=== PATIENT | male | born 1960 | race Caucasian/White ===

== ENCOUNTER 2017-08-03 16:17 | Observation (INO) | payer MEDICARE ==
[~2017-08-03] VITALS: Ht 177.8 cm; Wt 100.7 kg
[2017-08-03 16:21] VITALS: BP 168/102
[2017-08-03] MEDS ORDERED: LISI1TAB5 PO (16:22)
--- NOTE | 2017-08-03 16:25 | NUR ---
ARRIVAL PATIENT ARRIVED TO ED3 VIA W/C WITH FAMILY,C/O OF CHEST PAIN FOR THE PAST 3 DAYS, DID TAKE 6 81MG ASPIRIN ABRASIVE BAND WINDER, PAIN COMES AND GOES WITH TODAYS BEING WORSE. FAMILY BROUGHT TO ED FOR FURTHER EVAL.
--- NOTE | 2017-08-03 16:27 | PCM.EKG ---
[facility] Test Date: 2017-08-03 Test Time: 16:19:50 Pat Name: RICA SAUCEDA Department: Room: 309 Gender: M Polysom Tech: YENI : 1960 Requested By: OCTAVIA CHEUNG Order Number: [id number] Reading MD: Octavia CHEUNG Measurements Intervals [place] Rate: 86 P: 51 ND: 144 QRS: 41 QRSD: 80 T: 87 QT: 364 QTc: 435 Interpretive Statements Normal sinus rhythm Normal ECG No previous ECG available for comparison Electronically Signed On 08-11-2017 23:55:31 WAX PATTERN REPAIRER by Octavia CHEUNG Please click the below link to view image of tracing.
[2017-08-03 16:43] LABS: BASOPHIL % 0.5 % (0.0-0.2); EOSINOPHIL # 0.1 10^3/uL (0.0-0.2); HEMOGLOBIN 14.4 g/dL (13.9-16.3); LYMPHOCYTES # 2.2 10^3/uL (1.0-4.8); MEAN CELL HGB 29.3 pg (26-34); MEAN CELL HGB CONCENTRATION 32.8 g/dL (33-37); MEAN CORP VOLUME 89.2 fL (78-100); MEAN PLATELET VOLUME 10.7 fL (7.8-11.0); MONOCYTES # 0.7 10^3/uL (0.3-0.8); MONOCYTES % 8.9 % (5.0-12.0); NEUTROPHIL # 5.3 10^3/uL (1.8-7.7); NEUTROPHILS % 63.2 % (41.0-85.0); RED CELL DISTRIBUTION WIDTH 13.6 % (11.5-14.5); WHITE BLOOD CELL 8.3 10^3/uL (4.5-11.0)
--- NOTE | 2017-08-03 16:44 | ER.PDOC ---
General Chief Complaint: Chest Pain-Cardiac Nature Stated Complaint: CHEST PAIN Time seen by MD: 16:42 Source: patient Exam Limitations: no limitations History of Present Illness Initial Comments Chest pain for 3 days. Pain is mid chest and does not radiate. Timing/Duration: intermittent Severity/Quality: moderate, dull Radiation: no radiation Activities at Onset: none Prior CP/Workup: No Prior Chest Pain Aspirin Today: 325 mg x 1 Associated Symptoms: denies symptoms Allergies: Coded Allergies: No Known Allergies (Unverified , 08/03/17) Home Meds Reported Medications Lisinopril/Hydrochlorothiazide (LISINOPRIL-HCTZ 20-12.5 MG TAB) 1 Each Tablet, 1 TAB PO DAILY, #90 TAB 3 Refills 08/03/17 Past Medical History Medical History: hypertension Surgical History: back Social History Smoking: cigarettes, less than 1 pack/day Alcohol Use: occassionally Drug Use: none Constitutional: no symptoms reported Respiratory: no symptoms reported Cardiovascular: see HPI Gastrointestinal: no symptoms reported Genitourinary: no symptoms reported Musculoskeletal: no symptoms reported Skin: no symptoms reported All Other Systems: Reviewed and Negative Physical Exam General Appearance: No Apparent Distress, WD/WN HEENT: PERRL/EOMI Neck: Non-Tender, Full Range of Motion, Supple, Normal Inspection Respiratory: chest non-tender, lungs clear, normal breath sounds, no respiratory distress, no accessory muscle use Cardiovascular: Normal Peripheral Pulses, Regular Rate, Rhythm, No Edema, No Gallop, No JVD, No Murmur Gastrointestinal: Normal Bowel Sounds, No Organomegaly, No Pulsatile Mass, Non Tender, Soft Extremities: Normal Range of Motion, Non-Tender, Normal Inspection, No Pedal Edema, No Calf Tenderness, Normal Capillary Refill Neurologic/Psychiatric: indoor landscape architect II-XII NML as Tested, No Motor/Sensory Deficits, Alert, Normal Mood/Affect, Oriented x 3 Skin: Normal Color EKG/XRAY/CT/US EKG Comments: Normal XRAY: chest Course Blood Pressure Systolic: 168 Blood Pressure Diastolic: 102 Blood Pressure Mean: 124 Departure Time of Disposition: 18:54 Disposition: 09 ADMITTED INPATIENT Impression: Primary Impression: Chest pain Condition: Stable Comments Admitted to Dr. Siu Duration or Time Spent with Pa: 70 mins Problem Qualifiers Primary Impression: Chest pain Chest pain type: unspecified Qualified Codes: R07.9 - Chest pain, unspecified SKYE,DUDLEY E MD Aug 03, 2017 16:44
[2017-08-03 17:08] LABS: ALANINE AMINOTRANSFERASE(ML) 41 U/L (12-78); ALKALINE PHOSPHATASE 65 U/L (50-136); ASPARTATE AMINO TRANSFERASE 17 U/L (0-35); CALCIUM 8.9 mg/dL (8.4-10.5); CARBON DIOXIDE 22.8 mmol/L (20.0-32); GLUCOSE 87 mg/dL (70-110)
--- NOTE | 2017-08-03 17:59 | NUR ---
VALERIY DOCTOR SKYE ON THE PHONE WITH DOCTOR CROOKS, WILL ADMIT FOR OBSERVATION.
[2017-08-03 18:10] VITALS: BP 155/92
--- NOTE | 2017-08-03 18:56 | DIREP ---
PROCEDURE:CHEST 1 VIEW COMPARISON:None. INDICATIONS:CHEST PAIN FINDINGS:Portal chest obtained over series of 2 films LUNGS/PLEURA:No significant pulmonary parenchymal abnormalities. No effusions. VASCULATURE:Normal. Unremarkable pulmonary vasculature. CARDIAC:Normal. No cardiac silhouette abnormality or cardiomegaly. MEDIASTINUM:Normal. No visible mass or adenopathy. BONES:Moderate degenerative changes of both shoulders. OTHER:EKG leads are noted. CONCLUSION:No active pulmonary disease. Dictated by: Alex Wong MD on 08/03/2017 at 06:55 PM
--- NOTE | 2017-08-03 18:56 | PRM.ACF1 ---
Date and Time Date and Time Time: 18:55 Admission Criteria Forms CHEST PAIN: OBSERVATION CARE USE THIS FORM ONLY WHEN INPATIENT ADMISSION CRITERIA ARE NOT MET. (Place X for any and all applicable criteria): Placement for observation care may be appropriate for a patient with chest pain and ANY ONE of the following (1)(2)(3)(4)(5): [x]I. Suspected cardiac ischemia with nondiagnostic initial evaluation (eg, ECG, cardiac biomarkers) requiring further immediate evaluation such as stress testing and repeat laboratory testing to clarify diagnosis []II. Other suspected diagnosis requiring observation and monitoring during diagnostic evaluation (eg, pulmonary embolus, aortic dissection, pneumothorax, pericarditis, GI bleeding) (6)(7)(8)(9) []III. Other observation care needs (Use General Criteria: Observation Care) The original [facility] Note content created by [facility] has been revised. The portions of the content which have been revised are identified through the use of italic text, and [facility] has neither reviewed nor approved the modified material. All other unmodified content is copyright [facility]. Please see references footnoted in the original [facility] Note edition 2016 OCTAVIA CHEUNG MD Aug 03, 2017 18:56
[2017-08-03] MEDS ORDERED: LOVENOX SQ STA (18:57)
[2017-08-03] MEDS ORDERED: NITRO-BID TD STA (18:57)
[2017-08-03 19:10] VITALS: BP 126/78
[2017-08-03] MEDS ORDERED: LOVENOX SQ ONE (19:15)
[2017-08-03] MEDS ORDERED: NITRO-BID TD ONE (19:15)
[2017-08-03 19:44] VITALS: BP 124/84
--- NOTE | 2017-08-03 19:45 | NUR ---
arrival pt arrived on a wheel chair accompanied by family member and staff. No s/sx of any distress. Pt. verbalized no pain. Vital signs taken and recorded. Assessment done. Comfort measures provided. Call light within reach and will monitor regularly.
[2017-08-03] MEDS: LOVENOX SQ SCH (19:57)
--- NOTE | 2017-08-03 21:45 | NUR ---
food pt's significant others brought some food from [facility] for the pt. 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
[2017-08-04] VITALS: BP 122/67
[2017-08-04 04:00] VITALS: BP 111/75
--- NOTE | 2017-08-04 06:49 | NUR ---
report report given to o/c shift
--- NOTE | 2017-08-04 07:14 | NUR ---
REPORT REPORT RECEIVED FROM DESK REPRESENTATIVE
[2017-08-04] MEDS ORDERED: ASPIRIN EC ONE (07:21)
[2017-08-04 08:54] VITALS: BP 142/91
[2017-08-04] MEDS: ASPIRIN EC PO SCH (08:54)
--- NOTE | 2017-08-04 09:45 | PCM.HP ---
History of Present Illness Reason for Visit: Accelerating angina History of Present Illness 57-year-old gentleman, 30 years plus of smoking, history of hypertension and hyperlipidemia. He reports cardiac cath more than 7 years ago with mild nonobstructive disease in [place]. Admittedly emergency room with 3 weeks of accelerating angina described as burning sensation in the left anterior chest wall with radiation, social shortness of breath and diaphoresis. Symptoms has been exertional, over the last 5 days symptoms of been happening on minimal activity or even at rest. On presentation to the emergency room , initial EKG was unremarkable. First set of cardiac enzymes were negative. The patient chest pain responded to nitroglycerin, he was admitted for further evaluation and Treatment. Overnight the patient continues to have angina symptoms with diaphoresis and shortness of breath, EKG still unremarkable. Due to high risk carotid profile. And active symptoms with established disease more than 7 years ago, recommend coronary angiography. Past Medical History Cardiac: CAD ( Established.), CHF, HTN Past Social History Smoke: <1 pack per day (4:30 plus years) Occupation: he is disabled Alcohol: rare Travel Hx EBOLA RISK:Travel to/contact w: No Is pt experiencing any Ebola s: No Review of Systems Constitutional: Sweats, Weakness, No: Fever, Chills, Malaise, Other Eyes: No: Pain, Vision change, Conjunctivae inflammation, Eyelid inflammation, Other, Redness Respiratory: Shortness of breath, SOB with excertion Cardiovascular: Chest Pain ( diaphoresis) Gastrointestinal: Nausea ( occasional), No: Vomiting, Abdominal Pain, Diarrhea , Constipation, Melena, Hematochezia, Other Genitourinary: No Dysuria, No Frequency, No Incontinence, No Hematuria, No Retention, No Other Musculoskeletal: No: other, neck pain, shoulder pain, arm pain, back pain, hand pain, leg pain, foot pain Allergies: Coded Allergies: No Known Allergies (Unverified , 08/03/17) Scheduled Lisinopril/Hydrochlorothiazide (Lisinopril-Hctz 20-12.5 Mg Tab), 1 TAB PO DAILY, (Reported) VTE VTE Risk Total Score: 1 VTE Risk Score VTE Risk: Score 0-1 = Low Risk (Aggressive mobilization; early ambulation; no VTE prophylaxis required) Score 2: Moderate Risk (Intermittent/Pneumatic Compression Device OR Lovenox/Heparin/Coumadin) Score 3-4: High Risk (Intermittent/Pneumatic Compression Device AND Lovenox/Heparin/Coumadin) Score > or =5: Highest Risk (Intermittent/Pneumatic Compression Device AND Lovenox/Heparin/Coumadin) Antico:Hep/LMWH/Coum/Xarelto: Yes ( Lovenox therapy) VTE VTE Present on Admission: No Currently receiving anticoagul: No VTE Risk Total Score: 1 Exam Vital Signs Vital Signs Date Time Temp Pulse Resp B/P (MAP) Pulse Ox O2 Delivery O2 Flow Rate FiO2 08/04/17 08:54 97.5 79 18 142/91 (108) 96 Room Air General Appearance: Alert, Oriented X3, Cooperative, mild distress ( with shortness of breath) HEENT: Atraumatic Respiratory: Clear to auscultation Cardiovascular: Regular rate, Normal S1, Normal S2, No murmurs (soft S4 was noted) Abdominal: Normal bowel sounds Extremities: No clubbing Skin: No rash Assessment/Plan Assessment/Plan Assessment/Plan - 57-year-old smoker with unstable angina symptoms, presented with accelerating angina. Arrange for coronary angiography, start ACS protocol, check lipids echocardiogram and other metabolic derangements. - Last on modification and secondary prevention measures will also be delivered Problems: Patient History: Patient reports no known family medical history. KAJAL CROOKS MD Aug 04, 2017 09:45
[2017-08-04] MEDS ORDERED: HEPARIN ONE (11:28)
[2017-08-04] MEDS ORDERED: VERSED ONE (11:28)
[2017-08-04] MEDS ORDERED: CALAN ONE (11:28)
[2017-08-04] MEDS ORDERED: NITROGLYCERIN 25MG/D5W 250ML 250 ML IV ONE (11:29)
[2017-08-04] MEDS ORDERED: SUBLIMAZE ONE (11:29)
[2017-08-04] MEDS ORDERED: XYLOCAINE ONE (11:29)
[2017-08-04] MEDS ORDERED: NS 1000ML 1,000 ML ONE (11:54)
[2017-08-04 13:15] VITALS: BP 126/60
--- NOTE | 2017-08-04 13:17 | PCM.EKG ---
[facility] Test Date: 2017-08-04 Test Time: 10:22:54 Pat Name: RICA SAUCEDA Department: Patient ID: [id number] Room: 309 Gender: M Mechanical Planner: JOLANTA : 1960 Requested By: KAVON SIU Order Number: [id number] Reading MD: Kavon Siu Measurements Intervals [place] Rate: 83 P: 67 WV: 148 QRS: 70 QRSD: 84 T: 71 QT: 372 QTc: 437 Interpretive Statements Normal sinus rhythm Normal ECG No previous ECG available for comparison Electronically Signed On 08-08-2017 15:33:59 SENIOR MOBILE DEVELOPER by Kavon Siu Please click the below link to view image of tracing.
[2017-08-04] MEDS: LOVENOX SQ SCH (13:44)
--- NOTE | 2017-08-04 13:54 | NUR ---
PT TO SENIOR FIRE PROTECTION ENGINEER
[2017-08-04] MEDS: NS 1000ML 1,000 ML IV SCH (14:15)
[2017-08-04] MEDS ORDERED: AMBIEN PO PRN (14:30)
[2017-08-04] MEDS ORDERED: NORCO 5MG PO PRN (14:30)
--- NOTE | 2017-08-04 14:32 | NUR ---
PT RETURNED FROM HEART CATH
[2017-08-04 14:51] VITALS: BP 120/77
--- NOTE | 2017-08-04 15:33 | PCM.EKG ---
[facility] Test Date: 2017-08-04 Test Time: 14:34:18 Pat Name: RICA SAUCEDA Department: [id number] Room: 309 Gender: M Spice Grinder: : 1960 Requested By: KAVON SIU Order Number: [id number] Reading MD: Kavon Siu Measurements Intervals [place] Rate: 101 P: 49 PA: 144 QRS: 18 QRSD: 78 T: 57 QT: 348 QTc: 451 Interpretive Statements Sinus tachycardia Otherwise normal ECG No previous ECG available for comparison Electronically Signed On 08-08-2017 15:34:06 SCRAP SAWYER by Kavon Siu Please click the below link to view image of tracing.
--- NOTE | 2017-08-04 16:15 | NUR ---
2CC AIR REMOVED FROM TR BAND
--- NOTE | 2017-08-04 17:18 | NUR ---
2CC AIR REMOVED FROM TR BAND
--- NOTE | 2017-08-04 19:16 | NUR ---
REPORT REPORT GIVEN TO ONCOMING SHIFT
--- NOTE | 2017-08-04 19:30 | NUR ---
TR BAND REMOVED PT TR BAND. PRESSURE DRSG APPLIED. RIGHT RADIAL PULSE 2+. NO DRAINAGE NOTED FROM SITE. WILL CONT TO MONITOR. CALL LIGHT WITHIN REACH.
[2017-08-04 20:00] VITALS: BP 132/62
--- NOTE | 2017-08-04 21:40 | NUR ---
report \ received report from Emerita GARCIA
[2017-08-05] MEDS: NS 1000ML 1,000 ML IV SCH (00:15)
[2017-08-05 00:37] VITALS: BP 111/71
[2017-08-05 04:18] VITALS: BP 128/72
[2017-08-05 05:15] LABS: BASOPHIL # 0.1 10^3/uL (0.0-0.1); BASOPHIL % 0.7 % (0.0-0.2); EOSINOPHIL # 0.2 10^3/uL (0.0-0.2); EOSINOPHIL % 1.7 % (0.0-5.0); HEMOGLOBIN 13.7 g/dL (13.9-16.3); LYMPHOCYTES # 3.3 10^3/uL (1.0-4.8); LYMPHOCYTES % 38.2 % (24.0-44.0); MEAN CELL HGB CONCENTRATION 32.6 g/dL (33-37); MEAN CORP VOLUME 91.9 fL (78-100); MEAN PLATELET VOLUME 11.1 fL (7.8-11.0); MONOCYTES # 0.8 10^3/uL (0.3-0.8); MONOCYTES % 9.8 % (5.0-12.0); NEUTROPHIL # 4.2 10^3/uL (1.8-7.7); NEUTROPHILS % 49.1 % (41.0-85.0); RED CELL DISTRIBUTION WIDTH 14.1 % (11.5-14.5); WHITE BLOOD CELL 8.6 10^3/uL (4.5-11.0)
[2017-08-05 05:30] LABS: CALCIUM 8.4 mg/dL (8.4-10.5); CARBON DIOXIDE 25.4 mmol/L (20.0-32)
--- NOTE | 2017-08-05 06:49 | NUR ---
report report given to o/c shift
[2017-08-05 08:16] VITALS: BP 117/54
[2017-08-05] MEDS ORDERED: ASPIRIN ONE (08:21)
[2017-08-05] MEDS: ASPIRIN EC PO SCH (08:57)
[2017-08-05] MEDS ORDERED: NORVASC PO SCH (09:00)
--- NOTE | 2017-08-05 10:06 | NUR ---
DR. VALERIY CROOKS HERE TO SEE PT AT THIS TIME
--- NOTE | 2017-08-05 11:08 | CCRH ---
DATE OF SERVICE: 08/04/2017 PROCEDURES PERFORMED: 1. Left heart catheterization via right radial artery access. 2. Selective coronary angiography, left and right. 3. Left ventricular end diastolic pressure measurement. 4. Left ventriculography. COMPLICATIONS: None. BLOOD LOSS: Minimal, less than 10-15 mL. ACCESS: 6-Cypriot sheath in the right radial artery. INDICATIONS: The patient is a 57-year-old gentleman with 30+ years of smoking, hypertension, hyperlipidemia, admitted through Emergency Room with accelerating unstable angina without enzyme elevation. The patient's symptoms responded to nitroglycerin, was admitted for further evaluation of chest pain. Symptoms were recurrent during hospitalization, in light of inability to perform stress test over the weekend in our facility and the active patient's symptoms with moderate to high coronary risk profile, he was elected for coronary angiography for accurate diagnosis and treatment for chest pain with unstable accelerating angina symptoms. DESCRIPTION OF PROCEDURE: The patient signed a proper consent, was brought to the Gas Inspector in a fasting condition. Lab results reviewed, allergies verified and normal kidney function noted. Right wrist area was prepped and draped and sterilized in proper fashion followed by advancing 6-Cypriot sheath in radial artery. A 6-Cypriot [place] catheter was advanced over the guidewire to selectively engage left and right coronary arteries, exchanged over the guidewire for a pigtail catheter for LVEDP measurement and power injection LV gram in the [place] projection. Careful examination of coronary angiography showed no obstructive disease, suspected spasm in the LAD territory. Intracoronary nitroglycerin was given. Symptoms resolved. The patient was asymptomatic. Case concluded with removal of wires and catheters and application of TR band at the right radial artery access site for hemostasis. The case concluded successfully. The patient left the Gas Inspector in a stable condition. HEMODYNAMICS: 1. Opening pressure 151/91, mean of mmHg of central aortic pressure. 2. LVEDP was around 15 mmHg. 3. LV gram showed an EF of 65%. No wall motion abnormality. Minimal LVH. 4. No gradient across the aortic valve on pullback of the pigtail catheter. 5. Ascending aorta was normal in size without apparent pathology. ANGIOGRAPHIC FINDINGS: 1. RCA is large, dominant vessel, tortuous, free of disease. RPDA and PLV branches are medium sized tortuous vessels, dominant in distribution. The RCA has [place] appearance without significant disease. 2. The left main is normal size vessel, free of disease, normal in length and diameter. 3. LAD is a normal size vessel, free of disease, TIFFANY 2 flow noted in the LAD initially, slow flow, treated successfully with intracoronary nitroglycerin. The diagonal branches are small, tortuous vessels, free of disease. 4. Circumflex artery is a medium size nondominant vessel, quickly tapers into a small vessel distally, giving rise to a medium size, tortuous, obtuse marginal branch without obstructive disease. IMPRESSION: 1. Suspected coronary spasm of the left coronary artery: No obstructive coronary artery disease noted in a normal size left main, LAD and circumflex artery. Dominant RCA, tortuous vessel without significant disease. 2. EF 65% without wall motion abnormality. 3. Normal LVEDP around 15 mmHg. 4. The procedure was well tolerated. RECOMMENDATIONS: 1. TR band protocol. 2. Primary prevention of coronary artery disease. 3. Therapeutic lifestyle modifications. 4. Consider calcium channel kip therapy for suspected coronary spasm and Prinzmetal angina. 5. Control of hypertension, hyperlipidemia. 6. Outpatient followup once the patient meets discharge criteria. Kavon Siu MD DR: MIGNON/jennie JOB# [id number]
[2017-08-05] MEDS ORDERED: ASPI-655 PO (11:28)
[2017-08-05] MEDS ORDERED: AMLO5TAB4 PO (11:28)
--- NOTE | 2017-08-05 11:32 | PRM.DC ---
Discharge Summary Date of Discharge: Aug 05, 2017 Time of Request to Discharge: 11:29 Reason for Visit: Accelerating angina Additional Comments Patient was admitted for accelerating anginal symptoms. Taken for urgent cardiac catheterization and found to have no critical coronary artery occlusion , suspect coronary artery spasm causing angina. Patient History: Patient reports no known family medical history. History Present Illness: General: Alert, Oriented X3, Cooperative, No acute distress HEENT: Atraumatic Neck: Supple Lungs: Clear to auscultation Heart: Regular rate Extremities: No cyanosis Neuro: Normal speech, Normal tone Psych/Mental Status: Mental status NL, Mood NL Scheduled Amlodipine Besylate (Norvasc), 10 MG PO DAILY Aspirin (Aspirin Ec), 325 MG PO DAILY Discontinued Medications Lisinopril/Hydrochlorothiazide (Lisinopril-Hctz 20-12.5 Mg Tab), 1 TAB PO DAILY, (Reported) Discontinued Reason: Discontinue Sepsis Evaluation @ Discharge Course Blood Pressure Systolic: 117 Blood Pressure Diastolic: 54 Blood Pressure Mean: 75 Plan Problems: (1) Chest pain Status: Acute ICD Code: R07.9 - Chest pain, unspecified SNOMED: [id number] Discharge Date: Aug 05, 2017 Discharge Disposition: Stable Plan Discharge home. Follow up with hCau [place] NP within 10 days. Change lisinopril to Norvasc for coronary artery spasm treatment. Add aspirin. Address increased triglycerides outpatient. Problem Qualifiers (1) Chest pain: Chest pain type: unspecified Qualified Codes: R07.9 - Chest pain, unspecified PAOLA FARMER APRN, NP Aug 05, 2017 11:32
[2017-08-05 12:17] VITALS: BP 117/54
--- NOTE | 2017-08-05 12:18 | NUR ---
DISCHARGE PT D/C AT THIS TIME. EDUCATED PT ON NEW PRESCRIPTIONS WITH NO QUESTIONS VOICED. HIGHLIGHTED IMPORTANT INFORMATION IN EDUCATION SHEET CONCERNING NEW MEDICATIONS. PT TAKEN DOWN VIA W/C IN STABLE CONDITION
--- NOTE | 2017-08-06 10:20 | ECHO ---
DATE OF SERVICE: 08/04/2017 INDICATIONS: A 57-year-old gentleman admitted with unstable angina. Echocardiogram was requested to evaluate any structural heart disease, functional heart condition or any wall motion abnormalities. FINDINGS: 1. Study quality was fair. 2. Underlying rhythm is sinus rhythm. 3. Overall, EF is 60%. No wall motion abnormality noted. No LVH. LV dimensions were upper limit of normal at 6 cm end diastolic dimension, normal septal thickness, no LVOT obstruction. 4. RV size and EF were normal. 5. Atrial size was normal. 6. Mitral valve showed trace regurgitation, no stenosis, normal diastolic parameters. Mitral valve gradient was 1.2 mmHg. 7. Trace aortic insufficiency, no stenosis noted. Aortic valve velocity was 0.8 meter per second with aortic valve area of 2.3 cm2, normal readings. 8. Mild pulmonic insufficiency. 9. Mild tricuspid regurgitation. 10. No pericardial effusion, prominent pericardial fat pad. IMPRESSION: 1. EF 60%. No wall motion abnormality, upper limits of LV size. No dilatation, no LVH. No LVOT obstruction, normal septal thickness. 2. RV size and EF were normal. 3. Atrial size was normal. 4. No significant mitral pathology with normal diastolic parameters. 5. Trace aortic regurgitation, no stenosis. 6. Normal PA pressure. 7. Normal IVC size at 1 cm. 8. No pericardial effusion. Kavon Siu MD DR: MIGNON/jennie JOB# [id number]
== END 2017-08-05 12:29 | disposition home or self-care (01) ==
LOC: ER 16:17 → MS 18:00
PROVIDERS: ADMIT Internal Medicine; ATTEND Internal Medicine
DX: I20.0 Unstable angina (principal); E78.5 Hyperlipidemia, unspecified; F17.210 Nicotine dependence, cigarettes, uncomplicated; I11.0 Hypertensive heart disease with heart failure; I50.9 Heart failure, unspecified; I25.110 Atherosclerotic heart disease of native coronary artery with unstable angina pectoris
CPT/HCPCS: 36415 ×3; 71045; 80048; 80053; 80061; 82550 ×3; 82553 ×3; 83036; 83880; 84484 ×3; 85025 ×2; 85610; 85730; 93005 ×3; 93307; 93458; 96372 ×3; 99285; C1887 ×2; C1894; G0378 ×42; J1644 ×2; J1650 ×2; J2250; J3010; J3490 ×2; J7030 ×2; Q9967 ×2